=== PATIENT | female | born 2000 | race Caucasian/White ===

== ENCOUNTER 2018-05-29 08:08 | Emergency (ER) | payer MEDICAID ==
[~2018-05-29] VITALS: Ht 160 cm; Wt 73.9 kg
[2018-05-29 08:14] VITALS: BP 121/59
--- NOTE | 2018-05-29 08:20 | NUR ---
PT AMBULATES TO BED 3
--- NOTE | 2018-05-29 08:25 | NUR ---
PT. BIB FRIEND C/O COLD SYMPTOMS X 1 WEEK. PT STATES SHE HAS A SORE THROAT, FEVER, GREEN MUCUS AND A HEADACHE. + VOMITING X 1 THIS MORNING , -N/D AT THIS TIME . PT IS 1 MONTHS . LS: CLEAR THROUGHOUT. AFEBRILE AT THIS TIME. WILL CONTINUE TO MONITOR. ER MD MADE AWARE. SAFETY PRECAUTIONS IN PLACE.
--- NOTE | 2018-05-29 08:31 | NUR ---
Patient being evaluated by DR DICKENS at bedside.
[2018-05-29 09:01] VITALS: BP 120/62
--- NOTE | 2018-05-29 09:01 | NUR ---
Patient discharged with v/s stable. Written and verbal after care instructions given and explained. Patient verbalized understanding. Ambulatory with steady gait. All questions addressed prior to discharge. Advised to follow up with PMD.
== END 2018-05-29 09:01 | disposition home or self-care (01) ==
LOC: MED 08:08
DX: O99.511 Diseases of the respiratory system complicating pregnancy, first trimester (principal); J06.9 Acute upper respiratory infection, unspecified; Z3A.08 8 weeks gestation of pregnancy
CPT/HCPCS: 99283